=== PATIENT | male | born 1945 | race Caucasian/White ===

== ENCOUNTER 2018-03-12 12:16 | Inpatient (IN) | payer OTHER, MEDICARE ==
[~2018-03-12] VITALS: Ht 167.6 cm; Wt 45.0 kg
[~2018-03-12 12:16] MED LIST: ACYCLOVIR400 MG PO; ARANESP IJ; ASMANEX 60220 MCG INH; ASPIRIN325 MG PO; AUGMENTIN500TAB PO; AZITHROMYCIN250 MG PO; BACTRIM DS1 TAB PO; BI-PAP; CALCIUM + D600 MG PO; CALCIUM 600/VI600 MG PO; CALCIUM600 M2 PO; CEFTIN500 MG PO; COMBIVENT IN; COUGHTAB200 MG PO; DELTASONE20 MG PO; FERROUS SULF325 M1 PO; FINASTERIDE5 MG PO; FLUNISOLIDE NAB; FLUNISOLIDE0.025 %; FOLIC ACID1 MG PO; FORADIL IN; ISOSORB MONO60 MG PO; LASIX 40 MG TAB40 MG PO; LEVALBUTERO1 IN; LISINOPRIL10 MG PO; LISINOPRIL20 MG PO; LOPRESSOR25 MG PO; LOTRISONE TOP; MEDDOSEPAK PO; MULTIVITAM10 PO; OMEGA 31000 MG PO; OXYGEN IN; POT CL MICRO20 MEQ OR; PREDNISODT15 PO; PREDNISONE20 MG PO; SIMVASTATIN40 MG PO; SPIRIVA IN; SYMBICORT1 AE1 IN; SYMBICORT1 AER IN; TAMSULOSIN HCL0.4 MG PO; TH VITAMIN B PO; VITAMIN D400 UNI2 OR; ZESTRIL10 MG PO; ZITHROMAX500 MG PO; ZYRTEC10 MG PO; [UNRECOGNIZED DRUG - CODE] PO; [UNRECOGNIZED DRUG - OTHER] PO
[2018-03-12 12:56] LABS: HEMATOCRIT 44.7 % (39.0-50.0); HEMOGLOBIN 13.5 g/dl (14.0-18.0); IMMATURE GRANULOCYTES 0.3 % (0.0-5.0); MEAN CELL VOLUME 89.8 fL CALC (80.0-100.0); MEAN CORPUSCULAR HGB 27.1 pG CALC (26.0-32.0); MEAN CORPUSCULAR HGB CONC 30.2 g/L CALC (32.0-36.0); NEUT# 9.44 thou/uL (1.82-7.42); RED BLOOD COUNT 4.98 mill/uL (4.70-6.10); RED CELL DISTRI WIDTH 15.8 % (11.5-15.5)
[2018-03-12 13:11] LABS: ANION GAP 10 (6-22 (CALC)); BUN 42 mg/dL (8-23); BUN/CREATININE RATIO 23 (12-20 (CALC)); CARBON DIOXIDE 39 mmol/l (22-30); CHLORIDE 99 mmol/l (95-108); CREATININE 1.8 mg/dL (0.7-1.3); GFR 37 ML/MIN (>=60 (CALC)); GFR FOR AFR.AMER. 45 ML/MIN (>=60 (CALC)); POTASSIUM 5.3 mmol/l (3.5-5.1); SODIUM 143 mmol/l (137-146)
[2018-03-12 14:10] LABS: INFLUENZA A NONE DETECTED (NONE DETECT); INFLUENZA B NONE DETECTED (NONE DETECT)
[2018-03-12] MEDS ORDERED: ALBUTEROL SUL0.083 % IN (14:58)
[2018-03-12] MEDS ORDERED: CLA PO (14:59)
[2018-03-12] MEDS ORDERED: AMOXICILLIN PO (14:59)
[2018-03-12] MEDS ORDERED: EC ASPIRIN325 MG PO (15:00)
[2018-03-12] MEDS ORDERED: BUMETANIDE1 MG PO (15:01)
[2018-03-12] MEDS ORDERED: AZITHROMYCIN1 GM PO (15:01)
[2018-03-12] MEDS ORDERED: PULMICORT1 MG/2 ML IN (15:01)
[2018-03-12] MEDS ORDERED: CALCIUM600 M1 PO (15:03)
[2018-03-12] MEDS ORDERED: CETIRIZINE10 MG PO (15:03)
[2018-03-12] MEDS ORDERED: FOLIC ACID1 MG PO (15:04)
[2018-03-12] MEDS ORDERED: B-121000 MC1 PO (15:04)
[2018-03-12] MEDS ORDERED: DEXAMETHASON4 MG PO (15:04)
[2018-03-12] MEDS ORDERED: DIABETIC T100 MG/5 M PO (15:05)
[2018-03-12] MEDS ORDERED: LEVALBUTERO1 IN (15:06)
[2018-03-12] MEDS ORDERED: LISINOPRIL5 MG PO (15:06)
[2018-03-12] MEDS ORDERED: MAGNESIUM OXID400 M3 PO (15:06)
[2018-03-12 15:07] VITALS: BP 120/67
[2018-03-12] MEDS ORDERED: PEG 401 XX (15:07)
[2018-03-12] MEDS ORDERED: PRILOSEC20 MG PO (15:07)
[2018-03-12] MEDS ORDERED: PREDNISONE20 MG PO (15:08)
[2018-03-12] MEDS ORDERED: KLOR-CON SPRIN10 MEQ PO (15:08)
[2018-03-12] MEDS ORDERED: DALIRESP500 MCG PO (15:08)
[2018-03-12] MEDS ORDERED: TAMSULOSIN0.4 MG PO (15:09)
[2018-03-12] MEDS ORDERED: SIMVASTATIN5 MG PO (15:09)
[2018-03-12 19:00] VITALS: BP 127/66
[2018-03-12 20:00] VITALS: BP 120/60
[2018-03-12 21:00] VITALS: BP 134/66
[2018-03-12 22:00] VITALS: BP 102/51
[2018-03-12 23:00] VITALS: BP 107/49
[2018-03-13] VITALS (24 sets, daily range): BP systolic 90–149; BP diastolic 43–84
[2018-03-13 05:18] LABS: HEMOGLOBIN 11.8 g/dl (14.0-18.0); IMMATURE GRANULOCYTES 0.3 % (0.0-5.0); MEAN CELL VOLUME 87.3 fL CALC (80.0-100.0); MEAN CORPUSCULAR HGB 27.2 pG CALC (26.0-32.0); MEAN CORPUSCULAR HGB CONC 31.1 g/L CALC (32.0-36.0); NEUT# 6.22 thou/uL (1.82-7.42); RED BLOOD COUNT 4.34 mill/uL (4.70-6.10); RED CELL DISTRI WIDTH 15.4 % (11.5-15.5)
[2018-03-13 05:24] LABS: HEMATOCRIT 37.9 % (39.0-50.0)
[2018-03-13 06:28] LABS: ALBUMIN 3.1 g/dL (3.2-5.0); BILIRUBIN, TOTAL 0.3 mg/dL (0.0-1.4); CREATININE 1.8 mg/dL (0.7-1.3); MAGNESIUM 2.3 mg/dL (1.6-2.3); TOTAL PROTEIN 5.6 g/dL (6.3-8.2)
[2018-03-13 06:32] LABS: POTASSIUM 5.8 mmol/l (3.5-5.1)
[2018-03-14] VITALS (19 sets, daily range): BP systolic 104–139; BP diastolic 52–84
[2018-03-14 06:01] LABS: HEMOGLOBIN 11.4 g/dl (14.0-18.0); IMMATURE GRANULOCYTES 1.2 % (0.0-5.0); MEAN CELL VOLUME 87.9 fL CALC (80.0-100.0); MEAN CORPUSCULAR HGB 27.1 pG CALC (26.0-32.0); MEAN CORPUSCULAR HGB CONC 30.8 g/L CALC (32.0-36.0); NEUT# 8.6 thou/uL (1.82-7.42); RED BLOOD COUNT 4.21 mill/uL (4.70-6.10); RED CELL DISTRI WIDTH 15.6 % (11.5-15.5)
[2018-03-14 06:18] LABS: BILIRUBIN, TOTAL 0.2 mg/dL (0.0-1.4); CREATININE 1.4 mg/dL (0.7-1.3); MAGNESIUM 2.5 mg/dL (1.6-2.3); TOTAL PROTEIN 5.4 g/dL (6.3-8.2)
[2018-03-14 06:19] LABS: POTASSIUM 5.2 mmol/l (3.5-5.1)
[2018-03-14 09:56] LABS: URINE BILIRUBIN - DIPSTICK NEGATIVE (NEGATIVE); URINE BLOOD DIPSTICK NEGATIVE (NEGATIVE); URINE COLOR YELLOW; URINE GLUCOSE - DIPSTICK NEGATIVE (NEGATIVE); URINE KETONE NEGATIVE (NEGATIVE); URINE LEUK ESTERASE NEGATIVE (Negative); URINE NITRITE - DIPSTICK NEGATIVE (Negative); URINE PROTEIN - DIPSTICK NEGATIVE (NEG-TRACE); URINE SPECIFIC GRAVITY 1.025; URINE UROBILINOGEN - DIPSTICK 0.2 E.U./dL (0.2)
[2018-03-14 09:59] LABS: URINE CLARITY CLEAR
[2018-03-15] VITALS (13 sets, daily range): BP systolic 95–146; BP diastolic 47–65
[2018-03-15 05:44] LABS: HEMATOCRIT 38.9 % (39.0-50.0); HEMOGLOBIN 11.8 g/dl (14.0-18.0); IMMATURE GRANULOCYTES 0.4 % (0.0-5.0); MEAN CELL VOLUME 89.6 fL CALC (80.0-100.0); MEAN CORPUSCULAR HGB 27.2 pG CALC (26.0-32.0); MEAN CORPUSCULAR HGB CONC 30.3 g/L CALC (32.0-36.0); NEUT# 9.91 thou/uL (1.82-7.42); RED BLOOD COUNT 4.34 mill/uL (4.70-6.10); RED CELL DISTRI WIDTH 15.6 % (11.5-15.5)
[2018-03-15 06:16] LABS: ALBUMIN 3.1 g/dL (3.2-5.0); ALKALINE PHOSPHATASE 43 u/l (38-126); BILIRUBIN, TOTAL 0.1 mg/dL (0.0-1.4); BUN 56 mg/dL (8-23); BUN/CREATININE RATIO 47 (12-20 (CALC)); CARBON DIOXIDE 37 mmol/l (22-30); CHLORIDE 102 mmol/l (95-108); CREATININE 1.2 mg/dL (0.7-1.3); GFR 60 ML/MIN (>=60 (CALC)); GFR FOR AFR.AMER. > 60 ML/MIN (>=60 (CALC)); MAGNESIUM 2.6 mg/dL (1.6-2.3); SGOT/AST 27 u/l (19-48); SODIUM 141 mmol/l (137-146); TOTAL PROTEIN 5.6 g/dL (6.3-8.2)
[2018-03-15 06:20] LABS: ANION GAP 7 (6-22 (CALC)); POTASSIUM 5.4 mmol/l (3.5-5.1)
[2018-03-16] VITALS (10 sets, daily range): BP systolic 99–140; BP diastolic 50–69
[2018-03-16 06:43] LABS: ALBUMIN 2.8 g/dL (3.2-5.0); BUN 61 mg/dL (8-23); CARBON DIOXIDE 37 mmol/l (22-30); CHLORIDE 102 mmol/l (95-108); CREATININE 1.1 mg/dL (0.7-1.3); GFR > 60 ML/MIN (>=60 (CALC)); GFR FOR AFR.AMER. > 60 ML/MIN (>=60 (CALC)); SODIUM 139 mmol/l (137-146)
[2018-03-16 06:45] LABS: POTASSIUM 5.4 mmol/l (3.5-5.1)
== END 2018-03-16 15:13 | disposition hospice, inpatient (51) | DRG 189 ==
LOC: ED 12:16 → ED-I 13:50 → ED 14:23 → ICU 14:24
PROVIDERS: Family Medicine; Internal Medicine Nephrology; ADMIT Internal Medicine Nephrology; ATTEND Internal Medicine Nephrology
PROC: 5A09457 Assistance with Respiratory Ventilation, 24-96 Consecutive Hours, Continuous Positive Airway Pressure (ICD-10-PCS; principal; 2018-03-12)
DX: J96.22 Acute and chronic respiratory failure with hypercapnia (principal); J44.1 Chronic obstructive pulmonary disease with (acute) exacerbation; N17.9 Acute kidney failure, unspecified; E87.2 Acidosis; J96.21 Acute and chronic respiratory failure with hypoxia; I12.9 Hypertensive chronic kidney disease with stage 1 through stage 4 chronic kidney disease, or unspecified chronic kidney disease; N18.3 Chronic kidney disease, stage 3 (moderate); F17.210 Nicotine dependence, cigarettes, uncomplicated; E78.5 Hyperlipidemia, unspecified; N40.0 Benign prostatic hyperplasia without lower urinary tract symptoms; E87.5 Hyperkalemia; D63.1 Anemia in chronic kidney disease; M89.8X9 Other specified disorders of bone, unspecified site; Z51.5 Encounter for palliative care; Z66 Do not resuscitate